=== PATIENT | male | born 1960 | race Caucasian/White ===

== ENCOUNTER 2016-12-04 04:19 | Emergency (ER) | payer OTHER ==
--- NOTE | ~2016-12-04 | CR243 ---
[facility] A Service of [facility] RADIOLOGY TEXT RESULTS PATIENT: PRUDENCIO KNOX LOCATION: [facility] : [birth year] UNIT #: [id number] AGE: [address]: Desean Eden MD SEX: M ORDER DR: [id number] [facility] [address]. [place], [place] [address] [id number] E MR#: [id number] Acc #: [id number] NAME: PRUDENCIO KNOX : 1960 SEX: M STUDY DATE/TIME: 12/04/2016 05:11 UNIT: [facility] ROOM: STUDY DESCRIPTION: CR Thoracic Spine 3 Views Attending Physician: Desean Eden M.D. Ordering Physician: Abdifatah Yepez Aprn Primary Care Physician: Jovana Goel M.D. MEDICAL IMAGING REPORT This report is preliminary unless electronic signature is present EXAM Thoracic spine, 12/04 at 05:11 INDICATIONS Back pain after a fall tonight. Patient in alcohol withdrawal. FINDINGS 3 views of the thoracic spine are compared with PA and lateral chest x-ray from 02/06/2015. Multilevel osteophyte formation is seen. There is no fracture or subluxation. IMPRESSION Degenerative osteophyte formation. No acute fracture or malalignment. Dictated by... Desean Welsh Jr., M.D. THIS IS AN ELECTRONICALLY VERIFIED REPORT Desean Welsh Jr., M.D. at 12/04/2016 9:26 PM REGINE/tony TD: 12/04/2016 09:59 JOB #: [id number] MEDICAL IMAGING REPORT Page 1 of 1 COPY
--- NOTE | ~2016-12-04 | CT71 ---
[facility] A Service of [facility] & [facility] RADIOLOGY TEXT RESULTS PATIENT: PRUDENCIO KNOX LOCATION: [facility] : 64 UNIT #: [id number] AGE: [address]: Desean Eden MD SEX: M ORDER DR: [id number] [facility] [address]. [place], [place] [address] [id number] E MR#: [id number] Acc #: [id number] NAME: PRUDENCIO KNOX : 1960 SEX: M STUDY DATE/TIME: 12/04/2016 05:36 UNIT: [facility] ROOM: STUDY DESCRIPTION: CT Head Wo Contrast Attending Physician: Desean Eden M.D. Ordering Physician: Abdifatah Yepez Aprn Primary Care Physician: Jovana Goel M.D. MEDICAL IMAGING REPORT This report is preliminary unless electronic signature is present EXAM Head CT 12/04 at 05:36 INDICATIONS Alcohol withdrawal. Fall with subsequent headache this morning. This CT exam was performed with one or more of the following radiation dose reduction techniques: automatic exposure control, adjustment of mA and/or kV according to patient size, and iterative reconstruction. FINDINGS Axial images were obtained from base of the vertex without contrast. Comparison is made with 09/30/2016. Again seen is generalized atrophy. Ventricular size and configuration remain normal. No acute infarct or hemorrhage. No masses. No skull fractures. There is chronic mucosal thickening in the paranasal sinuses. IMPRESSION Atrophy. No acute intracranial abnormality. No skull fracture. Dictated by... Desean Welsh Jr., M.D. THIS IS AN ELECTRONICALLY VERIFIED REPORT Desean Welsh Jr., M.D. at 12/04/2016 9:26 PM REGINE/brando TD: 12/04/2016 09:59 JOB #: [id number] MEDICAL IMAGING REPORT Page 1 of 1 COPY
--- NOTE | ~2016-12-04 | CR71 ---
[facility] A Service of [facility] & [facility] RADIOLOGY TEXT RESULTS PATIENT: PRUDENCIO KNOX LOCATION: [facility] : 64 UNIT #: [id number] AGE: [address]: Desean Eden MD SEX: M ORDER DR: [id number] [facility] [address] [place], [place] [address] [id number] E MR#: [id number] Acc #: [id number] NAME: PRUDENCIO KNOX : 1960 SEX: M STUDY DATE/TIME: 12/04/2016 05:15 UNIT: [facility] ROOM: STUDY DESCRIPTION: CR Chest Single View Attending Physician: Desean Eden M.D. Ordering Physician: Abdifatah Yepez Aprn Primary Care Physician: Jovana Goel M.D. MEDICAL IMAGING REPORT This report is preliminary unless electronic signature is present EXAM Chest x-ray 12/04/2016 at 0515 INDICATION Chest pain after fall tonight. Alcohol withdrawal. FINDINGS AP views of the chest compared with 03/28/2016. Cardiac and mediastinal contours are normal. There is emphysema with by bilateral upper lobe scarring, right greater than left. No acute infiltrates. No pneumothorax. IMPRESSION Emphysema with upper lobe scarring. No acute findings in the chest. Dictated by... Desean Welsh Jr., M.D. THIS IS AN ELECTRONICALLY VERIFIED REPORT Desean Welsh Jr., M.D. at 12/04/2016 9:26 PM REGINE/fadi TD: 12/04/2016 10:10 JOB #: [id number] MEDICAL IMAGING REPORT Page 1 of 1 COPY
--- NOTE | ~2016-12-04 | CR58 ---
[facility] A Service of [facility] & [facility] RADIOLOGY TEXT RESULTS PATIENT: PRUDENCIO KNOX LOCATION: [facility] : 64 UNIT #: [id number] AGE: [address]: Desean Eden MD SEX: M ORDER DR: [id number] [facility] [address] [facility]. [place], [place] [address] [id number] MR#: [id number] Acc #: [id number] NAME: PRUDENCIO KNOX : 1960 SEX: M STUDY DATE/TIME: 12/04/2016 0507 UNIT: [facility] ROOM: STUDY DESCRIPTION: CR Cervical Spine 2 or 3 Views Attending Physician: Desean Eden M.D. Ordering Physician: Abdifatah Yepez Aprn Primary Care Physician: Jovana Goel M.D. MEDICAL IMAGING REPORT This report is preliminary unless electronic signature is present EXAM Cervical spine, 12/04 at 0507. INDICATION Neck pain after a fall tonight. Alcohol withdrawal. FINDINGS 3 views of the cervical spine are compared with cervical CT from 09/30/2016. No fractures or subluxation is seen. There is multilevel facet arthropathy. There is degenerative disc disease, predominately at C5-6. Prevertebral soft tissues are normal. IMPRESSION Multilevel degenerative disease. No acute fracture or malalignment. Dictated by... Desean Welsh Jr., M.D. THIS IS AN ELECTRONICALLY VERIFIED REPORT Desean Welsh Jr., M.D. at 12/04/2016 9:26 PM REGINE/coni TD: 12/04/2016 10:04 JOB #: [id number] MEDICAL IMAGING REPORT Page 1 of 1 COPY
[~2016-12-04 04:19] MED LIST: CELEXA PO; KLONOPIN; KLONOPIN PO; LISINOPRIL; LITHIUM; LITHIUM PO; OXYCONTIN; OXYCONTIN PO; THIAMINE HCL100 MG PO
[2016-12-04 04:59] LABS: ALBUMIN SERUM 4.4 g/dL (3.5-5.0); BILIRUBIN, DIRECT 0.2 mg/dL (0.0-0.2); BILIRUBIN,INDIRECT 0.5 mg/dL (0.0-0.9); BILIRUBIN,TOTAL 0.7 mg/dL (0.2-2.0); BUN/CREATININE RATIO 13.75; CALCIUM SERUM 8.3 mg/dL (8.4-10.2); CREATININE SERUM 0.8 mg/dL (0.6-1.4); GLOM FILT RATE Estimated 101.3 mL/min (>60); POTASSIUM 3.5 mmol/L (3.5-5.1); PROTEIN TOTAL SERUM 7.8 g/dL (6.0-8.3)
== END 2016-12-04 11:10 ==
LOC: CED 04:19
PROVIDERS: Nurse Practitioner Family
DX: S80.212A Abrasion, left knee, initial encounter (principal); S80.211A Abrasion, right knee, initial encounter; S30.810A Abrasion of lower back and pelvis, initial encounter; F10.10 Alcohol abuse, uncomplicated; Y90.8 Blood alcohol level of 240 mg/100 ml or more; W22.8XXA Striking against or struck by other objects, initial encounter; F17.210 Nicotine dependence, cigarettes, uncomplicated
CPT/HCPCS: 36415; 70450; 71010; 72040; 72072; 80048; 80076; 96360; 99285; G0480

== ENCOUNTER 2016-12-04 12:48 | Inpatient (IN) | payer OTHER ==
--- NOTE | ~2016-12-04 | PN ---
Unit #: [id number] #: [id number] Patient: PRUDENCIO KNOX [id number] [facility] [address] [place] [address] [id number] MR#: [id number] NAME: PRUDENCIO KNOX ROOM: [facility] Age: 56 Sex: M Admission Date: 12/04/2016 : 1960 Attending Physician: Deniz Shearer M.D. Admitting Physician: Deniz Shearer M.D. Primary Care Physician: Giacomo Angulo NOTES DATE OF SERVICE: 12/06/2016 DISCUSSION Prudencio Knox is a 56-year-old male. The patient was seen on 12/06/2016. The patient interviewed, chart reviewed, and obtained information from nursing staff. The patient was sad, depressed, flat affect, withdrawn, isolative. The patient denied any side effects from medication. Vital signs stable; temperature 98.4, pulse 90, and blood pressure 134/96. The patient is still reporting having withdrawal symptoms such as increase in blood pressure, frequent awakening from sleep, insomnia, mood lability. Complete review of systems unremarkable. MENTAL STATUS EXAMINATION General appearance, the patient dressed casually. Attention span and concentration, fair. Oriented in place and person. Mood and affect, labile. Speech, monotone. Thought process, concrete. The patient denied any thoughts of harming self or others, but guarded. Recent and remote memory, poor. Insight and judgment, poor. DIAGNOSES 1. Alcohol use disorder, severe. 2. Mood disorder, not otherwise specified. ASSESSMENT AND PLAN Advised to continue with current medication and therapeutic protocol. If needed, consider further adjustment of medication. Dictated by... Giacomo Davalos/juvencio TD: 12/06/2016 17:23 JOB #: [id number] Unit #: [id number] #: [id number] Patient: PRUDENCIO KNOX PROGRESS NOTES Page 1 of 1 X Deniz Shearer MD PROGRESS NOTE
--- NOTE | ~2016-12-04 | PN ---
Unit #: [id number] #: [id number] Patient: PRUDENCIO KNOX [id number] [facility] [address] [place] [address] [id number] MR#: [id number] NAME: PRUDENCIO KNOX ROOM: [facility] Age: 56 Sex: M Admission Date: 12/04/2016 : 1960 Attending Physician: Deniz Shearer M.D. Admitting Physician: Deniz Shearer M.D. Primary Care Physician: Giacomo Angulo PROGRESS NOTES DATE 12/07/2016 DISCUSSION Prudencio Knox is a 56-year-old male, seen on 12/07/2016. The patient interviewed, chart reviewed, and obtained information from the nursing staff. The patient was compliant and cooperative. Mood sad and dysphoric, flat affect, and guarded. The patient tolerating medication fairly well, making progress. The patient denied any complaints. REVIEW OF SYSTEMS Complete review of systems unremarkable. MENTAL STATUS EXAMINATION General appearance: Patient dressed casually. Attention span and concentration, fair. Oriented to time, place, and person. Mood and affect, sad and dysphoric. Speech, monotone. Thought process, concrete. The patient denied any thoughts of harming self or other. Recent and remote memory, poor. Insight and judgment, poor. DIAGNOSIS Alcohol use disorder, severe. ASSESSMENT/PLAN Advised to continue with the current detox protocol, if needed consider further adjustment of medication. Dictated by... Giacomo Davalos/miguel TD: 12/10/2016 06:00 JOB #: [id number] Unit #: [id number] #: [id number] Patient: PRUDENCIO KNOX PROGRESS NOTES Page 1 of 1 X Deniz Shearer MD PROGRESS NOTE
--- NOTE | ~2016-12-04 | PN ---
Unit #: [id number] #: [id number] Patient: PRUDENCIO CHIU [id number] [facility] [address] [place] [address] [id number] I MR#: [id number] NAME: PRUDENCIO CHIU ROOM: [facility] Age: 56 Sex: M Admission Date: 12/04/2016 : 1960 Attending Physician: Deniz Shearer M.D. Admitting Physician: Deniz Shearer M.D. Primary Care Physician: Giacomo Angulo PROGRESS NOTES DATE OF SERVICE: 12/09/2016 DISCUSSION Mr. Prudencio Chiu is a 56-year-old male patient, seen on 12/09/2016. The patient interviewed, chart reviewed, and obtained information from nursing staff. The patient reported that he is still having withdrawal symptom, having anxiety, not quite ready to go. The patient's vital signs; temperature 98.6, pulse 63, respirations 16, and blood pressure 100/60. The patient is still complaining of anxiety and mood lability, compliant with medication, compliant and cooperative on the unit. Complete review of systems unremarkable. MENTAL STATUS EXAMINATION General appearance, the patient dressed casually. Attention span and concentration, fair. Oriented in place and person. Mood and affect; sad, dysphoric, anxious. Speech, regular rate. Thought process, goal directed. The patient denied any thoughts of harming self or others or any psychotic symptom. Recent and remote memory, fair. Insight and judgment, fair to slightly impaired. DIAGNOSES 1. Alcohol use disorder, severe. 2. Mood disorder, not otherwise specified. ASSESSMENT AND PLAN Advised to cancel discharge and change it to tomorrow. Continue with current treatment. We will closely monitor. If needed, consider further adjustment of medication. Dictated by... Deniz Shearer M.D. JOCELYNE/juvencio TD: 12/09/2016 16:19 JOB #: [id number] Unit #: [id number] #: [id number] Patient: PRUDENCIO CHIU PROGRESS NOTES Page 1 of 1 X Deniz Shearer MD PROGRESS NOTE
--- NOTE | ~2016-12-04 | PA ---
Unit #: [id number] #: [id number] Patient: PRUDENCIO KNOX [id number] [facility] [address] [place] [address] [id number] I MR#: [id number] NAME: PRUDENCIO KNOX ROOM: [facility] Age: 56 Sex: M Admission Date: 12/04/2016 : 1960 Date of Assessment: 12/05/2016 Attending Physician: Deniz Shearer M.D. Admitting Physician: Deniz Shearer M.D. Primary Care Physician: Jovana Goel M.D. PSYCHIATRIC ASSESSMENT INFORMANTS The patient reliability, fair informant and chart reliability, good. CHIEF COMPLAINT Detox. HISTORY OF PRESENT ILLNESS Mr. Prudencio Knox is a 56-year-old male, needing help with detox. The patient reported having withdrawal symptoms; chills, sweats, tremors, agitation, and nausea. The patient scored 13 on CIWA score. The patient reported using Xanax as reported and has a history of legal problem. The patient reportedly currently disabled, currently homeless, recently detoxed and discharged [facility]. The patient currently denied any psychotic symptom or any suicidal ideation or homicidal ideation. The patient reported tobacco use, age of onset 17; alcohol, age of onset 16; marijuana, age of onset 14; crack cocaine, age of onset 29; opioid, age of onset 46; and benzodiazepine, age of onset 29. The patient reported history of blackout, history of hepatitis, withdrawal symptom, IV drug use, irritability, poor appetite, poor concentration, sleep problem, and tremors. Needing inpatient admission at this time for psychiatric stabilization. PAST PSYCHIATRIC HISTORY Remarkable for history of previous treatment at [facility] in September. FAMILY HISTORY AND SOCIAL HISTORY Poor support system. The patient lives by himself, but currently homeless. No history of any abuse. MEDICAL HISTORY Remarkable for history of hepatitis C and diabetes mellitus. Musculoskeletal; muscle strength and tone, no atrophy or abnormal movement. Gait normal. MEDICATION HISTORY The patient is currently on no medication. ALLERGIES No known drug allergies. SUBSTANCE ABUSE HISTORY Please see above. Unit #: [id number] #: [id number] Patient: PRUDENCIO KNOX REVIEW OF SYSTEMS HEENT: Eyes, clear. Ears, nose, mouth, and throat; clear. CARDIOVASCULAR: Unremarkable. RESPIRATORY: Unremarkable. GI: Unremarkable. : Unremarkable. SKIN: Unremarkable. LYMPH NODE: Unremarkable. NEUROLOGIC: Unremarkable. ENDOCRINE: Unremarkable. HEMATOLOGIC: Unremarkable. ALLERGIC/IMMUNOLOGIC: Unremarkable. MUSCULOSKELETAL: Muscle strength and tone, no atrophy or abnormal movement. Gait normal. MENTAL STATUS EXAMINATION CONSTITUTIONAL: Measurement of vital signs; temperature 98.6, heart rate 70, respiratory rate 18, oxygen saturation 94%, and blood pressure 132/89. Height 5 feet 8 inches and weight 198 pounds. GENERAL APPEARANCE: The patient's hygiene and grooming, poor. No facial deformity noted. MUSCULOSKELETAL: Please see above. PSYCHIATRIC EXAMINATION Description of speech; regular rate, normal volume, normal articulation, coherent, and spontaneous. Description of thought process, goal directed. Description of association, intact. Description of abnormal psychotic thinking; the patient denied any hallucination, delusions, mood lability, sad, depressed, and substance abuse. Denied any suicidal or homicidal ideation or any psychotic symptom. Description of the patient's judgment: Concerning everyday activity, poor. Social situation, poor. Concerning psychiatric condition, poor. Complete mental status examination; oriented in time, place, and person. Recent and remote memory, fair. Attention span and concentration, fair. Language, able to name object and repeat phrases. Fund of knowledge, aware of current event and passive vocabulary intact. Mood and affect, sad and dysphoric. Insight and judgment, fair to poor. ASSETS AND LIABILITIES Assets, the patient is articulate and able to take care of his ADL. Liability, history of depression and substance abuse. ADMITTING DIAGNOSES Psychiatric: Alcohol use disorder, severe, F10.20 and mood disorder, not otherwise specified, F32.9. Secondary diagnosis: Deferred. Medical diagnoses: History of hepatitis C and diabetes. Stressors: Psychosocial stressor. PSYCHIATRIC PLAN AND TREATMENT GOAL AND DISCHARGE PLAN 1. Advised to admit the patient on the inpatient unit. Provide safe, supportive, and structured environment. 2. Ordered labs; CBC, CMP, UA, and UDS. Unit #: [id number] #: [id number] Patient: PRUDENCIO KNOX 3. The patient to start with detox protocol and detox monitoring. If needed, consider further adjustment of medication. The patient to attend all the programing on the inpatient unit. TREATMENT GOAL To attain euthymic mood, gain insight into his problem, and learn coping skills. DISCHARGE PLAN Plan to stabilize the patient and consider followup in outpatient program. ESTIMATED LENGTH OF STAY 5 days. Dictated by... Giacomo Davalos/juvencio TD: 12/05/2016 16:34 JOB #: [id number] PSYCHIATRIC ASSESSMENT Page 1 of 1 X Deniz Shearer MD X PSYCHIATRIC ASSESSMENT
--- NOTE | ~2016-12-04 | DS ---
Unit #: [id number] #: [id number] Patient: PRUDENCIO KNOX [id number] [facility] [address] [place] [address] [id number] MR#: [id number] NAME: PRUDENCIO KNOX ROOM: [facility] Age: 56 Sex: M Admission Date: 12/04/2016 : 1960 Discharge Date: 12/10/2016 Attending Physician: Deniz Shearer M.D. Primary Care Physician: Jovana Goel M.D. DISCHARGE SUMMARY REASON FOR ADMISSION Detox. DIAGNOSTIC STUDIES LABORATORY RESULTS: Unremarkable. HOSPITAL COURSE The patient was admitted to inpatient unit on 12/04/2016 and discharged on 12/10/2016. The patient was treated on the inpatient unit with detox protocol, detox monitoring, chemical dependency group, psychoeducation, and psychotherapy. The patient responded well with the above modalities of treatment. Subsequently, the patient was discharged with a plan to follow up in outpatient program. DISCHARGE MEDICATIONS None. DISCHARGE DIAGNOSES Psychiatric: 1. Alcohol use disorder, severe, F10.20. 2. Mood disorder, not otherwise specified, F32.9. Secondary diagnosis: Deferred. Medical diagnoses: History of hepatitis, diabetes. Stressors: Psychosocial stressors. DISCHARGE INSTRUCTIONS The patient is to follow up in outpatient clinic as per social insurance specialist. CONDITION ON DISCHARGE The patient was pleasant and cooperative. Denied any psychotic symptom or any suicidal ideation. PROGNOSIS Guarded. DIET AND ACTIVITY As tolerated. Dictated by... Deniz Shearer M.D. Unit #: [id number] #: [id number] Patient: PRUDENCIO KNOX SZC/modl TD: 12/10/2016 16:32 JOB #: [id number] DISCHARGE SUMMARY Page 1 of 1 X Deniz Shearer MD X DISCHARGE SUMMARY
--- NOTE | ~2016-12-04 | PN ---
Unit #: [id number] #: [id number] Patient: PRUDENCIO KNOX [id number] [facility] [address] [place] [address] [id number] I MR#: [id number] NAME: PRUDENCIO KNOX ROOM: [facility] Age: 56 Sex: M Admission Date: 12/04/2016 : 1960 Attending Physician: Deniz Shearer M.D. Admitting Physician: Deniz Shearer M.D. Primary Care Physician: Giacomo Angulo PROGRESS NOTES DATE OF SERVICE: 12/05/2016 DISCUSSION Mr. Prudencio Knox is a 56-year-old male, seen on 12/05/2016. The patient continues to be withdrawn, sad, dysphoric, anxious, having tremors, flat affect. Reported having withdrawal symptoms. Vital signs; temperature 98.6, pulse 70, and blood pressure 132/89. Complete review of systems unremarkable. MENTAL STATUS EXAMINATION General appearance, the patient dressed casually. Attention span and concentration, fair. Oriented in place and person. Mood and affect; sad, depressed. Speech, monotone. Thought process, concrete. The patient denied any thoughts of harming self or others, but guarded, isolative, seclusive, having withdrawal symptoms as mentioned above. Recent and remote memory, poor. Insight and judgment, poor. DIAGNOSIS Alcohol use disorder, severe. ASSESSMENT AND PLAN Advised to continue with current medication and therapeutic protocol. If needed, consider further adjustment of medication. Dictated by... Giacomo Davalos/juvencio TD: 12/05/2016 20:21 JOB #: [id number] Unit #: [id number] #: [id number] Patient: PRUDENCIO KNOX PROGRESS NOTES Page 1 of 1 X Deniz Shearer MD PROGRESS NOTE
--- NOTE | ~2016-12-04 | PN ---
Unit #: [id number] #: [id number] Patient: PRUDENCIO KNOX [id number] [facility] [address] [place] [address] [id number] I MR#: [id number] NAME: PRUDENCIO KNOX ROOM: [facility] Age: 56 Sex: M Admission Date: 12/04/2016 : 1960 Attending Physician: Deniz Shearer M.D. Admitting Physician: Deniz Shearer M.D. Primary Care Physician: Giacomo Angulo PROGRESS NOTES DATE 12/08/2016 DISCUSSION Prudencio Knox is a 56-year-old male seen on 12/08/2016. Patient interviewed, chart reviewed, and obtained information from nursing staff. Patient was compliant and cooperative. Mood sad, dysphoric. Flat affect. Guarded. Patient was able to maintain safe behavior. REVIEW OF SYSTEMS Complete review of systems unremarkable. MENTAL STATUS EXAMINATION GENERAL APPEARANCE: Patient dressed casually. ATTENTION SPAN AND CONCENTRATION: Fair. ORIENTATION: Oriented in place and person. MOOD AND AFFECT: Sad, dysphoric. SPEECH: Monotone. THOUGHT PROCESS: [place]. Patient denied any thoughts of harming self or others or any psychotic symptoms. RECENT AND REMOTE MEMORY: Poor. INSIGHT AND JUDGEMENT: Poor. DIAGNOSES Mood disorder, NOS. ASSESSMENT/PLAN Advised to continue with current medication and therapeutic protocol. If needed, consider further adjustment of medication. Dictated by... Giacomo Davalos/anny TD: 12/11/2016 07:56 JOB #: [id number] Unit #: [id number] #: [id number] Patient: PRUDENCIO KNOX PROGRESS NOTES Page 1 of 1 X Deniz Shearer MD X PROGRESS NOTE
--- NOTE | ~2016-12-04 | CO ---
Unit #: [id number] #: [id number] Patient: PRUDENCIO KNOX [id number] [facility] [address] [place] [address] [id number] I MR#: [id number] NAME: PRUDENCIO KNOX ROOM: [facility] Age: 56 Sex: M Admission Date: 12/04/2016 : 1960 Attending Physician: Deniz Shearer M.D. Primary Care Physician: Jovana Goel M.D. Consultation Date: 12/08/2016 CONSULTATION REPORT ORDERING PROVIDER Dr. Shearer. REASON FOR CONSULT Low platelet. SUBJECTIVE The patient has no complaints. He does have a history of alcohol abuse. No hepatitis or HIV that the patient is aware. OBJECTIVE Platelets noted to be 94,000. The remainder of his CBC was unremarkable. His examination was also unremarkable. ASSESSMENT Thrombocytopenia. PLAN Plan is to get a hepatitis panel and HIV; however, I do believe that his low platelet level is due to his alcohol abuse. Records were reviewed from previous admissions and he does have a history of having similar platelet, never below 50,000. Dictated by... Natasha Miller A.P.R.N. for Giacomo Fraser/juvencio TD: 12/08/2016 14:20 JOB #: [id number] CONSULTATION REPORT Page 1 of 1 X NATASHA MILLER APRN CONSULTATION REPORT
--- NOTE | ~2016-12-04 | HP ---
Unit #: [id number] #: [id number] Patient: PRUDENCIO KNOX [id number] [facility] [address] [place] [address] [id number] I MR#: [id number] NAME: PRUDENCIO KNOX ROOM: 74 Age: 56 Sex: M Admission Date: 12/04/2016 : 1960 Attending Physician: Deniz Shearer M.D. Admitting Physician: Deniz Shearer M.D. Primary Care Physician: Jovana Goel M.D. HISTORY AND PHYSICAL HISTORY OF PRESENT ILLNESS Prudencio is a 56 year old admitted to [facility] because of his continued polysubstance abuse which includes alcohol and IV heroin. PAST MEDICAL HISTORY Long history of polysubstance abuse to include IV heroin. PAST SURGICAL HISTORY Fractured right femur with ORIF. ALLERGIES No known drug allergies. SOCIAL HISTORY Smokes one pack per day. Drinks a case of beer on a daily basis and admits to long history of opioid abuse to include IV heroin. FAMILY HISTORY Medically noncontributory. REVIEW OF SYSTEMS CONSTITUTIONAL: No fever or chills. HEENT: Denies any sore throat, ear pain or runny nose. CARDIOVASCULAR: Denies chest pain, irregular heart rhythm or palpitations. CHEST: Denies shortness of breath or cough. No hemoptysis. GASTROINTESTINAL: Denies nausea, vomiting, diarrhea or chronic constipation. ENDOCRINE: Denies history of increased thirst or urination. No recent significant weight loss or gain. GENITOURINARY: Denies dysuria, frequency, or hematuria. SKIN: Denies any rashes. HEMATOLOGIC: Denies history of increased bleeding or bruising. MUSCULOSKELETAL: Denies any hot, swollen joints. No generalized muscle pain. NEUROLOGIC: Denies problems with vision or speech. No frequent, severe headaches. No numbness, tingling or weakness in any extremities. Denies loss of bladder or bowel control. CURRENT MEDICATIONS Detox protocol. PHYSICAL EXAMINATION GENERAL: Alert, well nourished. No apparent distress. Unit #: [id number] #: [id number] Patient: PRUDENCIO KNOX VITAL SIGNS: Blood pressure 132/88, heart rate 80, respirations 16, and temperature 98.6. WEIGHT: 198. HEIGHT: 5 feet 8 inches. SKIN: Warm and dry without rash or lesion. HEENT: Normocephalic. TMs not viewed. Oral and nasal passages clear. Conjunctivae clear. PERRLA. EOMs intact. NECK: Supple without lymphadenopathy or thyromegaly. HEART: Regular rate and rhythm without murmur. LUNGS: Clear. ABDOMEN: Soft, nontender. : Not done. EXTREMITIES: No evidence of cyanosis, clubbing or edema. Moves all without focal deficit. NEUROLOGICAL: Grossly within normal limits. Cranial Nerves: II: Visual solorzano are intact. III, IV AND : Extraocular movements are intact. Pupils are equal, round and reactive to light. V: Facial sensation is grossly normal. VII: Facial movements and expression are normal. VIII: Auditory acuity grossly intact. IX, X: Uvula is midline. Phonation is normal. XI: Patient shrugs shoulders and turns head normally. XII: Tongue protrudes in the midline. Sensory and Motor Function: Sensory and motor sensation is grossly normal. Motor: moves all extremities well. Coordination: Gait is normal. Deep Tendon Reflexes: Intact. IMPRESSION Psychiatric admission. RECOMMENDATIONS PSYCHIATRIC: Per psychiatrist. MEDICAL: I see no contraindication to participate in this facility's activities. MEDICAL PROGNOSIS Good. MEDICAL CONDITION Stable. Dictated by... Toña Powers P.A.-C. for Giacomo Fraser/eron TD: 12/05/2016 10:51 JOB #: [id number] Unit #: [id number] #: [id number] Patient: PRUDENCIO KNOX HISTORY AND PHYSICAL Page 1 of 1 X Toña Powers HISTORY AND PHYSICAL
[2016-12-05 10:19] LABS: THYROID STIMULATING HORMONE 1.96 uIU/ml (0.34-5.60)
[2016-12-05 10:26] LABS: FREE THYROXIN (T4) 0.81 ng/dL (0.58-1.64)
[2016-12-05 10:31] LABS: URINE APPEARANCE CLEAR; URINE BILIRUBIN NEG (NEG); URINE BLOOD NEG (NEG); URINE COLOR DK YELLOW; URINE GLUCOSE NEG (NEG); URINE KETONE NEG (NEG); URINE LEUKOCYTE ESTERASE NEG (NEG); URINE NITRATE NEG (NEG); URINE PH 7.5 (5-8); URINE PROTEIN NEG (NEG)
[2016-12-05 10:46] LABS: AMPHETAMINE NEG (NEG); BARBITURATES NEG (NEG); BENZODIAZEPINES NEG (NEG); COCAINE NEG (NEG); MARIJUANA NEG (NEG); OPIATES NEG (NEG); TRICYCLIC ANTIDEPRESSANTS NEG (NEG); U METHADONE NEG (NEG)
[2016-12-05 10:55] LABS: BASOPHIL% 0.7 % (0-2.5); EOSINOPHIL% 0.2 % (0.0-7.0); HEMATOCRIT 45.8 % (38.0-50.0); HEMOGLOBIN 14.9 gm/dL (13.0-16.0); LYMPHOCYTE# 1.5 X10e3 (1.0-3.5); LYMPHOCYTE% 28.5 % (17.0-45.0); MEAN CELL VOLUME 89.3 FL (83-96); MEAN CORPUSCULAR HEMOGLOBIN 29.1 PG (28-34); MEAN CORPUSCULAR HGB CONC 32.6 g/dL (30-36); MEAN PLATELET VOLUME 7.8 FL (6.5-11.5); MONOCYTE# 0.6 X10e3 (0-1.0); MONOCYTE% 11.6 % (3.0-12.0); NEUTROPHIL# 3.1 X10e3 (1.5-7.1); RED BLOOD COUNT 5.13 X10e (3.90-5.60); RED CELL DISTRIBUTION WIDTH 18.5 % (11.0-15.5); WHITE BLOOD COUNT 5.2 X10e3 (4.0-10.5)
[2016-12-05 11:23] LABS: DIFF IND YES; PLATELET COUNT 94 X10e3 (140-420)
[2016-12-05 11:27] LABS: ANISOCYTOSIS SL; PLATELET ESTIMATE DECREASED (NORMAL); RBC NORMAL YES
[2016-12-13 08:25] LABS: HA AB IGM (HEPPAN) Nonreactive (()); HB CORE AB IGM (HEPPAN) Nonreactive (Nonreactive); HB S AG (HEPPAN) Nonreactive (Nonreactive); HEP C AB (HEPPAN) Reactive (Nonreactive)
== END 2016-12-10 13:15 | disposition home or self-care (01) | DRG 897 ==
LOC: P1E 12:48
PROVIDERS: Psychiatry & Neurology Psychiatry
PROC: HZ2ZZZZ Detoxification Services for Substance Abuse Treatment (ICD-10-PCS; principal; 2016-12-04)
DX: F10.20 Alcohol dependence, uncomplicated (principal); D69.6 Thrombocytopenia, unspecified; F39 Unspecified mood [affective] disorder; B19.20 Unspecified viral hepatitis C without hepatic coma; E11.9 Type 2 diabetes mellitus without complications; Y90.6 Blood alcohol level of 120-199 mg/100 ml
CPT/HCPCS: 80074; 80307; 81003; 84439; 84443; 85025; 86592; 87522; 87806

== ENCOUNTER 2016-12-10 23:59 | Emergency (ER) | payer OTHER ==
[2016-12-11 01:35] LABS: BASOPHIL# 0.1 X10e3 (0-0.3); BASOPHIL% 1.3 % (0-2.5); DIFF IND NO; EOSINOPHIL# 0.1 X10e3 (0-0.7); EOSINOPHIL% 0.9 % (0.0-7.0); HEMATOCRIT 42.6 % (38.0-50.0); LYMPHOCYTE# 2.2 X10e3 (1.0-3.5); LYMPHOCYTE% 30.8 % (17.0-45.0); MEAN CELL VOLUME 89.7 FL (83-96); MEAN CORPUSCULAR HEMOGLOBIN 29.4 PG (28-34); MEAN CORPUSCULAR HGB CONC 32.8 g/dL (30-36); MEAN PLATELET VOLUME 7.9 FL (6.5-11.5); MONOCYTE# 0.9 X10e3 (0-1.0); MONOCYTE% 12.5 % (3.0-12.0); NEUTROPHIL# 3.9 X10e3 (1.5-7.1); NEUTROPHIL% 54.5 % (40-75); PLATELET COUNT 149 X10e3 (140-420); RED BLOOD COUNT 4.75 X10e (3.90-5.60); RED CELL DISTRIBUTION WIDTH 17.6 % (11.0-15.5); WHITE BLOOD COUNT 7.1 X10e3 (4.0-10.5)
[2016-12-11 02:19] LABS: CALCIUM SERUM 9.2 mg/dL (8.4-10.2); CREATININE SERUM 0.8 mg/dL (0.6-1.4); GLOM FILT RATE Estimated 101.3 mL/min (>60)
[2016-12-11 09:14] LABS: AMPHETAMINE NEG (NEG); BARBITURATES NEG (NEG); BENZODIAZEPINES POS (NEG); COCAINE NEG (NEG); MARIJUANA NEG (NEG); OPIATES NEG (NEG); TRICYCLIC ANTIDEPRESSANTS NEG (NEG); U METHADONE NEG (NEG)
== END 2016-12-11 16:31 | disposition short-term general hospital (02) ==
LOC: CED 23:59
PROVIDERS: Emergency Medicine
DX: F10.129 Alcohol abuse with intoxication, unspecified (principal); Y90.6 Blood alcohol level of 120-199 mg/100 ml; F17.200 Nicotine dependence, unspecified, uncomplicated
CPT/HCPCS: 36415; 80048; 80307; 85025; 99285; G0480

== ENCOUNTER 2017-03-14 | Emergency (ER) | payer OTHER ==
--- NOTE | ~2017-03-14 | EKG ---
PATIENT: PRUDENCIO KNOX UNIT #: [id number] Ventricular Rate: 73 BPM Atrial Rate: 267 BPM QRS Duration: 100 ms Q-T Interval: 408 ms QTC Calculation(Bezet): 449 ms Calculated R [place]: 22 degrees Calculated T [place]: 26 degrees Diagnosis Line: Atrial fibrillation Diagnosis Line: Abnormal ECG Diagnosis Line: When compared with ECG of 28-MAR-2016 11:14, Diagnosis Line: Atrial fibrillation has replaced Sinus rhythm Diagnosis Line: Confirmed by CHERIE TRINH MD ([id number]) on Diagnosis Line: 03/14/2017 7:34:18 AM INTERPRETING MD: GAYATHRI FAY
--- NOTE | ~2017-03-14 | CR72 ---
[facility] A Service of [facility] RADIOLOGY TEXT RESULTS PATIENT: PRUDENCIO KNOX LOCATION: [facility] : 64 UNIT #: [id number] AGE: [address]: Lei Linares MD SEX: M ORDER DR: [id number] [place] [id number] [facility]. [place], [place] [address] [id number] E MR#: [id number] Acc #: [id number] NAME: PRUDENCIO KNOX : 1960 SEX: M STUDY DATE/TIME: 03/14/2017 0:39 UNIT: DAR ROOM: STUDY DESCRIPTION: CR Chest Single View Portable Attending Physician: Lei Linares M.D. Ordering Physician: Lei Linares M.D. Primary Care Physician: Jovana Goel M.D. MEDICAL IMAGING REPORT This report is preliminary unless electronic signature is present EXAM Portable chest INDICATION Unresponsive patient today. PROCEDURE Frontal view chest. COMPARISON 12/04/2016. FINDINGS Vwqg-ta-sqfrknuq cardiomegaly. There is diffuse interstitial and alveolar prominence similar to the previous study, probably chronic. No new dense consolidation or visible pneumothorax. IMPRESSION Cardiomegaly and likely chronic interstitial coarsening. No new dense opacity. Given the appearance, it is difficult to exclude a component of superimposed edema. Dictated by... Kamran Carlos M.D. THIS IS AN ELECTRONICALLY VERIFIED REPORT Kamran Carlos M.D. at 03/18/2017 8:31 AM EED/kim TD: 03/14/2017 07:04 JOB #: [id number] [facility] A Service [facility] RADIOLOGY TEXT RESULTS PATIENT: PRUDENCIO KNOX LOCATION: [facility] : 64 UNIT #: [id number] AGE: [address]: Lei Linares MD SEX: M ORDER DR: MEDICAL IMAGING REPORT Page 1 of 1 COPY
--- NOTE | ~2017-03-14 | CT71 ---
[facility] A Service of [facility] RADIOLOGY TEXT RESULTS PATIENT: PRUDENCIO KNOX LOCATION: [facility] : 64 UNIT #: [id number] AGE: [address]: Lei Linares MD SEX: M ORDER DR: [id number] [address] [address] [id number] E MR#: [id number] Acc #: [id number] NAME: PRUDENCIO KNOX : 1960 SEX: M STUDY DATE/TIME: 03/14/2017 0:59 UNIT: DAR ROOM: STUDY DESCRIPTION: CT Head Wo Contrast Attending Physician: Lei Linares M.D. Ordering Physician: Lei Linares M.D. Primary Care Physician: Jovnaa Goel M.D. MEDICAL IMAGING REPORT This report is preliminary unless electronic signature is present EXAM CT head without contrast INDICATION Confusion today. PROCEDURE Unenhanced CT head. This CT examination was performed with one or more of the following radiation dose reduction techniques: automatic exposure control, adjustment of mA and/or kV according to patient size, and iterative reconstruction. COMPARISON 12/04/2016. FINDINGS No acute hemorrhage, abnormal mass effect, extraaxial fluid collection or hydrocephalus. No depressed calvarial fracture. Paranasal sinuses, mastoid air cells are clear. IMPRESSION No acute intracranial findings. Dictated by... Kamran Carlos M.D. THIS IS AN ELECTRONICALLY VERIFIED REPORT Kamran Carlos M.D. at 03/18/2017 8:30 AM EEJonnathan/kim TD: 03/14/2017 07:09 JOB #: [id number] [facility] A Service of [facility] RADIOLOGY TEXT RESULTS PATIENT: PRUDENCIO KNOX LOCATION: [facility] : 64 UNIT #: [id number] AGE: [address]: Lei Linares MD SEX: M ORDER DR: MEDICAL IMAGING REPORT Page 1 of 1 COPY
[2017-03-14 01:32] LABS: POC - CKMB 1.7 ng/mL (0.0-7.9); POC - TROPONIN <0.05 ng/mL (<=0.05)
[2017-03-14 02:21] LABS: BASOPHIL# 0.1 X10e3 (0-0.3); BASOPHIL% 1.3 % (0-2.5); EOSINOPHIL# 0.1 X10e3 (0-0.7); EOSINOPHIL% 1.4 % (0.0-7.0); HEMATOCRIT 41.6 % (38.0-50.0); HEMOGLOBIN 13.7 gm/dL (13.0-16.0); LYMPHOCYTE# 2.2 X10e3 (1.0-3.5); LYMPHOCYTE% 35.1 % (17.0-45.0); MEAN CELL VOLUME 90.6 FL (83-96); MEAN CORPUSCULAR HEMOGLOBIN 29.9 PG (28-34); MEAN CORPUSCULAR HGB CONC 33.1 g/dL (30-36); MEAN PLATELET VOLUME 7.9 FL (6.5-11.5); MONOCYTE# 0.5 X10e3 (0-1.0); MONOCYTE% 7.7 % (3.0-12.0); NEUTROPHIL# 3.4 X10e3 (1.5-7.1); NEUTROPHIL% 54.5 % (40-75); PLATELET COUNT 148 X10e3 (140-420); RED BLOOD COUNT 4.59 X10e (3.90-5.60); RED CELL DISTRIBUTION WIDTH 13.4 % (11.0-15.5); WHITE BLOOD COUNT 6.2 X10e3 (4.0-10.5)
[2017-03-14 02:22] LABS: PARTIAL THROMBOPLASTIN TIME 24.7 SECONDS (23.5-31.3); PROTHROMBIN TIME (PATIENT) 10.7 SECONDS (10.0-11.7)
[2017-03-14 02:23] LABS: ACETAMINOPHEN <10 ug/mL; ALBUMIN SERUM 3.8 g/dL (3.5-5.0); ALKALINE PHOSPHATASE 66 U/L (32-92); ALT (SGPT) 37 U/L (10-40); AST (SGOT) 36 U/L (10-42); BILIRUBIN, DIRECT 0.1 mg/dL (0.0-0.2); BILIRUBIN,INDIRECT 0.8 mg/dL (0.0-0.9); BILIRUBIN,TOTAL 0.9 mg/dL (0.2-2.0); BLOOD UREA NITROGEN 23 mg/dL (9-23); BUN/CREATININE RATIO 25.55; CALCIUM SERUM 7.7 mg/dL (8.4-10.2); CARBON DIOXIDE 25 mmol/L (22-31); CHLORIDE 111 mmol/L (100-111); CREATININE SERUM 0.9 mg/dL (0.6-1.4); GLOM FILT RATE Estimated 96.5 mL/min (>60); GLUCOSE FASTING 160 mg/dL (70-110); POTASSIUM 3.1 mmol/L (3.5-5.1); PROTEIN TOTAL SERUM 6.8 g/dL (6.0-8.3); SALICYLATE <4.0 mg/dL; SODIUM 140 mmol/L (135-145)
[2017-03-14 02:24] LABS: ALCOHOL BLOOD 336 mg/dL ([, 0])
[2017-03-14 03:02] LABS: DIFF IND NO
== END 2017-03-14 05:00 | disposition left against medical advice (07) ==
LOC: CED
PROVIDERS: Emergency Medicine
DX: I48.91 Unspecified atrial fibrillation (principal); F10.129 Alcohol abuse with intoxication, unspecified; F19.10 Other psychoactive substance abuse, uncomplicated; F17.200 Nicotine dependence, unspecified, uncomplicated
CPT/HCPCS: 36415; 70450; 71010; 80048; 80076; 82553; 82947; 84484; 85025; 85610; 85730; 93005; 96365; 96375; 99285; G0480; J3411; J3475

== ENCOUNTER 2017-03-14 18:31 | Emergency (ER) | payer OTHER ==
[~2017-03-14] VITALS: Ht 167.6 cm; Wt 85.7 kg
[2017-03-14 20:14] LABS: BUN/CREATININE RATIO 32.85; CALCIUM SERUM 7.9 mg/dL (8.4-10.2); CREATININE SERUM 0.7 mg/dL (0.6-1.4); POTASSIUM 3.6 mmol/L (3.5-5.1)
== END 2017-03-14 21:35 | disposition home or self-care (01) ==
LOC: CED 18:31
PROVIDERS: Emergency Medicine
DX: F10.129 Alcohol abuse with intoxication, unspecified (principal); E11.9 Type 2 diabetes mellitus without complications; K75.9 Inflammatory liver disease, unspecified
CPT/HCPCS: 36415; 80048; 82947; 99284; G0480

== ENCOUNTER 2017-03-15 12:23 | Emergency (ER) | payer OTHER ==
[~2017-03-15] VITALS: Ht 188 cm; Wt 85.7 kg
[2017-03-15 12:48] LABS: BASOPHIL# 0.1 X10e3 (0-0.3); BASOPHIL% 0.8 % (0-2.5); DIFF IND NO; EOSINOPHIL% 0.3 % (0.0-7.0); HEMATOCRIT 39.2 % (38.0-50.0); HEMOGLOBIN 13.1 gm/dL (13.0-16.0); LYMPHOCYTE# 2.3 X10e3 (1.0-3.5); LYMPHOCYTE% 29.1 % (17.0-45.0); MEAN CELL VOLUME 89.9 FL (83-96); MEAN CORPUSCULAR HEMOGLOBIN 29.9 PG (28-34); MEAN CORPUSCULAR HGB CONC 33.3 g/dL (30-36); MEAN PLATELET VOLUME 7.4 FL (6.5-11.5); MONOCYTE# 0.8 X10e3 (0-1.0); MONOCYTE% 9.8 % (3.0-12.0); NEUTROPHIL# 4.8 X10e3 (1.5-7.1); PLATELET COUNT 138 X10e3 (140-420); RED BLOOD COUNT 4.37 X10e (3.90-5.60); RED CELL DISTRIBUTION WIDTH 13.3 % (11.0-15.5)
[2017-03-15 13:17] LABS: ALBUMIN SERUM 3.9 g/dL (3.5-5.0); BILIRUBIN, DIRECT 0.2 mg/dL (0.0-0.2); BILIRUBIN,INDIRECT 0.6 mg/dL (0.0-0.9); BILIRUBIN,TOTAL 0.8 mg/dL (0.2-2.0); BUN/CREATININE RATIO 21.66; CREATININE SERUM 0.6 mg/dL (0.6-1.4); POTASSIUM 3.3 mmol/L (3.5-5.1)
[2017-03-16] MEDS ORDERED: LITHIUM PO (09:12)
[2017-03-16] MEDS ORDERED: CELEBREX50 MG PO (09:13)
[2017-03-16] MEDS ORDERED: NEURONTIN600 MG PO (09:14)
[2017-03-16] MEDS ORDERED: CITALOPRAM HBR40 MG PO (09:40)
== END 2017-03-15 17:31 | disposition left against medical advice (07) ==
LOC: CED 12:23
PROVIDERS: Student in an Organized Health Care Education/Training Program
DX: F10.129 Alcohol abuse with intoxication, unspecified (principal)
CPT/HCPCS: 36415; 80048; 80076; 85025; 96365; 96366; 99284; G0480; J3411; J3475

== ENCOUNTER 2017-03-15 19:43 | Observation (INO) | payer OTHER ==
[~2017-03-15] VITALS: Ht 167.6 cm; Wt 99.8 kg
--- NOTE | ~2017-03-15 | DS ---
Unit #: [id number] #: [id number] Patient: PRUDENCIO KNOX [id number] [address] [address] [id number] I MR#: [id number] NAME: PRUDENCIO KNOX ROOM: 46 Age: 56 Sex: M Admission Date: 03/16/2017 : 1960 Discharge Date: 03/17/2017 Attending Physician: Tyrone Bowden M.D. Primary Care Physician: Jovana Goel M.D. DISCHARGE SUMMARY PRINCIPAL DIAGNOSIS Aspiration pneumonia. SECONDARY DIAGNOSES 1. Hypokalemia. 2. Alcohol abuse. 3. Bipolar disorder. 4. Polysubstance abuse with marijuana and opiates. HOSPITAL COURSE The patient was admitted to observation status for aspiration pneumonia and started on Zosyn. He had a normal white blood cell count. Maximum temperature was 100.5 and was nonseptic in appearance. He is felt stable to transition to seven additional days of Augmentin and will be discharged on that. On the day of discharge the patient's potassium level is 3.1 and he will be given 7 days of potassium supplementation and advised to follow up with his primary care physician for repeat check of his potassium levels. The patient was seen by Dr. Shearer with psychiatry for the patient's bipolar disorder and to evaluate him for a 24-hour hold that had been initiated in the emergency room for unknown reason. The hold was removed and the patient is stable to discharge. The patient's lithium level was not measurable. It appears he has been noncompliant with that. He was counseled about compliance. He reports that he has only been drinking again for the last two days and so is not expected to have significant issues with alcohol withdrawal. DISCHARGE DISPOSITION Home. DISCHARGE STATUS Stable. DISCHARGE ACTIVITY Ad carmen. DISCHARGE DIET Unrestricted. DISCHARGE FOLLOWUP Follow up with primary care physician in two to eight weeks. DISCHARGE MEDICATIONS Unit #: [id number] #: [id number] Patient: PRUDENCIO KNOX 1. Potassium chloride 20 mEq p.o. b.i.d. for 7 days. 2. Augmentin 875 mg p.o. b.i.d. for 7 days. 3. Gabapentin 600 mg p.o. daily. 4. Celexa 40 mg p.o. daily. 5. [place] 900 mg p.o. b.i.d. Dictated by... Tyrone Bowden M.D. WSB/jeana TD: 03/17/2017 12:05 JOB #: [id number] DISCHARGE SUMMARY Page 1 of 1 X Tyrone Bowden MD X DISCHARGE SUMMARY
--- NOTE | ~2017-03-15 | CR63 ---
[facility] A Service of [facility] RADIOLOGY TEXT RESULTS PATIENT: PRUDENCIO KNOX LOCATION: [facility] 461-01 : [birth year] UNIT #: [id number] AGE: [address]: Tyrone Bowden MD SEX: M ORDER DR: [id number] [facility] [address] [place], [place] [address] [id number] I MR#: [id number] Acc #: [id number] NAME: PRUDENCIO KNOX : 1960 SEX: M STUDY DATE/TIME: 03/16/2017 7:47 UNIT: [facility] ROOM: [facility] STUDY DESCRIPTION: CR Chest 2 View Attending Physician: Marilyn Kent M.D. Ordering Physician: Edmund Ayala M.D. Primary Care Physician: Jovana Goel M.D. MEDICAL IMAGING REPORT This report is preliminary unless electronic signature is present EXAM Chest 2 views HISTORY Chest pain this morning, 56-year-old patient with a 25-year smoking history. COMMENT Two views of the chest reviewed. Three films submitted. Study compared to 03/14/2017. Interval development of a opacity in the left icq-au-ptflq lung perihilar region. It is about 3.5 cm in dimension and indistinct, without calcification. It is new from the and this would favor some infectious or inflammatory disease. Clinical correlation and followup is recommended to ensure resolution and exclude postobstructive process. Again, there is parenchymal scarring likely in the right upper lung. The cardiac silhouette is mildly enlarged. There is no pneumothorax. There is distortion of pulmonary parenchymal architecture in general, consistent with underlying chronic lung disease. The volume status has probably improved since the . No pleural effusion is suspected. IMPRESSION 1. Since the study of the of this month, the patient has developed an ill-defined opacity in the left sup-ci-csqli lung perihilar region. This is therefore most concerning for infectious or inflammatory disease, or possibly aspiration. Clinical correlation and followup is recommended to exclude a postobstructive process. 2. Likely underlying chronic lung disease with particular scarring in the right upper lobe. There is probably some improvement in volume status since prior film. Cardiac silhouette is still enlarged. Dictated by... Irlanda Grimes M.D. [facility] A Service of [facility] RADIOLOGY TEXT RESULTS PATIENT: PRUDENCIO KNOX LOCATION: [place] [address] : [birth year] UNIT #: [id number] AGE: [address]: Tyrone Bowden MD SEX: M ORDER DR: THIS IS AN ELECTRONICALLY VERIFIED REPORT Irlanda Grimes M.D. at 03/17/2017 7:51 AM SUMA/deyvi TD: 03/16/2017 16:31 JOB #: [id number] MEDICAL IMAGING REPORT Page 1 of 1 COPY
--- NOTE | ~2017-03-15 | EKG ---
PATIENT: PRUDENCIO KNOX UNIT #: [id number] Ventricular Rate: 73 BPM Atrial Rate: 73 BPM P-R Interval: 170 ms QRS Duration: 104 ms Q-T Interval: 400 ms QTC Calculation(Bezet): 440 ms P [place]: 71 degrees Calculated R [place]: 38 degrees Calculated T [place]: 54 degrees Diagnosis Line: Normal sinus rhythm Diagnosis Line: Normal ECG Diagnosis Line: No previous ECGs available Diagnosis Line: Confirmed by MARTIN BILLY MD ([id number]) on Diagnosis Line: 03/17/2017 8:18:27 PM INTERPRETING MD: WHITNEY
--- NOTE | ~2017-03-15 | HP ---
Unit #: [id number] #: [id number] Patient: PRUDENCIO KNOX [id number] [place], [place] [address] [id number] I MR#: [id number] NAME: PRUDENCIO KNOX ROOM: [address] Age: 56 Sex: M Admission Date: 03/16/2017 : 1960 Attending Physician: Marilyn Kent M.D. Primary Care Physician: Jovana Goel M.D. HISTORY AND PHYSICAL CHIEF COMPLAINT Alcohol intoxication. HISTORY OF PRESENT ILLNESS The patient is a 56-year-old male with a past medical history of alcohol abuse, bipolar disorder, seizures, hypertension who presented to the emergency department for evaluation of the above. History is obtained from chart review and discussion with ER staff, as well as from the patient. The patient was apparently found down with a bottle of alcohol. The patient states that he has not been feeling well for the past week. He has had productive cough. He reports chest wall pain in association with cough. He denies any fever. No vomiting or diarrhea. He states that he no longer drinks daily. He states that he has been sober for the past three months but did relapse yesterday and drank about a fifth of vodka. During the course of his evaluation in the emergency department, a chest x-ray was done and showed left upper lobe infiltrate. He was given Zosyn in the emergency department. He is being admitted to [facility] for evaluation and further treatment. PAST MEDICAL HISTORY 1. Admission to [facility] 12/30/2010 for alcohol abuse. 2. Bipolar disorder. 3. 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 The patient does not recall when his last seizures was, it was more than a year ago. 4. Hypertension. PAST SURGICAL HISTORY ORIF of the fight femur. SOCIAL HISTORY The patient lives with his girlfriend. He states that he has been sober for three months. His last drink was yesterday and consisted of a fifth of vodka. He has a history of IV drug use but currently denies. FAMILY HISTORY The patient denies any heart disease or diabetes in his parents. ALLERGIES No known allergies. Unit #: [id number] #: [id number] Patient: PRUDENCIO KNOX HOME MEDICATIONS 1. [place] 900 mg twice daily. 2. Neurontin 600 mg daily. 3. Celexa 40 mg daily. REVIEW OF SYSTEMS A complete review of systems is negative except as indicated in the HPI. PHYSICAL EXAMINATION VITAL SIGNS: Temperature is 99.8, pulse 67, respirations 18, blood pressure 109/54, oxygen saturation is 100% on room air. GENERAL: The patient is a male who is sleeping but wakes to voice. HEENT: The head is atraumatic. Mucous membranes are moist. NECK: Supple. Trachea is midline. CARDIOVASCULAR: Regular rate and rhythm. LUNGS: Demonstrate a few scattered rhonchi. Breathing is not labored. ABDOMEN: Soft, nontender with bowel sounds present in all four quadrants. EXTREMITIES: Nontender with no pedal edema. NEUROLOGIC: The patient is awake and alert. He follows commands. PSYCH: Mood and affect are normal. Patient is cooperative. SKIN: Skin of examined areas is warm and dry. DIAGNOSTIC STUDIES CARDIOLOGY STUDIES: EKG shows normal sinus rhythm at a rate of 73 BPM. Chest x-ray shows left upper lobe infiltrate. LABORATORY STUDIES: Troponin is less than 0.05. Magnesium is 1.7. Complete blood count notable for hemoglobin and hematocrit of 12.7 and 38.4 respectively. Platelets are 125. Comprehensive metabolic panel notable for potassium of 3.3, calcium 7.9. Urinalysis notable for essentially normal urine tox screen, positive for marijuana and opiates. Alcohol level is 263. ASSESSMENT The patient is a 56-year-old male with: 1. Aspiration pneumonia. The patient received Zosyn in the emergency department. 2. Alcohol abuse with intoxication. Alcohol level is 263. 3. Chest wall pain. 4. Hypokalemia. 5. Hypocalcemia. 6. Hypertension. 7. History of seizures related to alcohol withdrawal. 8. Bipolar disorder. 9. Tobacco abuse. PLAN 1. Admit for observation to intermediate level. 2. Blood cultures x2. 3. Sputum culture and sensitivity. 4. Zosyn 3.375 g IV q.6 hours. 5. Supplemental oxygen. 6. DuoNeb. 7. Serial cardiac enzymes. 8. Alcohol withdrawal protocol. 9. Neuro checks. 10. manager equipmentsenior project manager engineering consult regarding alcohol abuse. Unit #: [id number] #: [id number] Patient: ABILIO,PRUDENCIO 11. Repeat labs in the morning including magnesium. 12. Check lithium level. 13. Potassium magnesium protocol. 14. SCDs for DVT prophylaxis. 15. Additional workup and consultants based on above. Dictated by Marilyn Kent M.D. GELY/sarita TD: 03/16/2017 14:25 JOB #: [id number] HISTORY AND PHYSICAL Page 1 of 1 X Marilyn Kent MD X HISTORY AND PHYSICAL
--- NOTE | ~2017-03-15 | EKG ---
PATIENT: PRUDENCIO KNOX UNIT #: [id number] Ventricular Rate: 72 BPM Atrial Rate: 72 BPM P-R Interval: 178 ms QRS Duration: 118 ms Q-T Interval: 418 ms QTC Calculation(Bezet): 457 ms P [place]: 83 degrees Calculated R [place]: 69 degrees Calculated T [place]: 62 degrees Diagnosis Line: Normal sinus rhythm with sinus arrhythmia Diagnosis Line: Poor R wave progression questionable lead position Diagnosis Line: or body habitus Diagnosis Line: Borderline ECG Diagnosis Line: When compared with ECG of 14-MAR-2017 01:13, Diagnosis Line: Sinus rhythm has replaced Atrial fibrillation Diagnosis Line: Confirmed by MARTIN BILLY MD ([id number]) on Diagnosis Line: 03/17/2017 8:15:18 PM INTERPRETING MD: WHITNEY
--- NOTE | ~2017-03-15 | CO ---
Unit #: [id number] #: [id number] Patient: PRUDENCIO KNOX [address] [facility]. [place], [place] [address] [id number] I MR#: [id number] NAME: PRUDENCIO KNOX ROOM: 461 Age: 56 Sex: M Admission Date: 03/16/2017 : 1960 Attending Physician: Tyrone Bowden M.D. Primary Care Physician: Jovana Goel M.D. Consultation Date: 03/17/2017 CONSULTATION REPORT REASON FOR CONSULTATION Bipolar disorder, alcohol abuse. HISTORY OF PRESENT ILLNESS Mr. Prudencio Knox is a 56-year-old white male, seen in room 461, bed 1 on 03/17/2017 at [facility]. The patient was admitted in alcohol intoxicated state. The patient reports that he has a history of bipolar disorder and takes lithium and Celexa. The patient currently denied any suicidal or homicidal ideation. Currently has a sitter. The patient was able to contract for safety, diagnosed with aspiration pneumonia. The patient reported that he was sober from the past 3 months, but did relapse yesterday and drank about a fifth of vodka. The patient's urine drug screen was positive for marijuana and opiates. The patient denied any psychotic symptom. PAST PSYCHIATRIC HISTORY Remarkable for history of bipolar disorder, history of alcohol abuse, history of abuse of opiates and marijuana. MEDICAL HISTORY Remarkable for history of hypertension and obesity. MEDICATION HISTORY The patient is on lithium, Neurontin, Celexa. ALLERGIES No known drug allergies. FAMILY HISTORY AND SOCIAL HISTORY The patient reports that he has a good support system from family. No history of abuse. History of substance abuse as mentioned above. MENTAL STATUS EXAMINATION Vital signs; temperature 99.3, heart rate 63, respiratory rate 18, blood pressure 118/64, and oxygen saturation 98%. General appearance; the patient dressed in hospital attire, lying comfortably in bed, made good eye contact. Attention span and concentration, fair. Speech, regular rate and coherent. Oriented in time, place, and person. Mood and affect were sad, dysphoric, anxious. Thought process, coherent and goal directed. Thought content, the patient denied any thoughts of harming self or others. Denied any hallucination. Recent and remote memory, fair. Language, intact. Fund of knowledge, fair. Insight and judgment, fair to slightly impaired. Unit #: [id number] #: [id number] Patient: PRUDENCIO KNOX DIAGNOSES Psychiatric: Alcohol use disorder, severe, F10.20; cannabis abuse disorder, moderate, F12.20; opioid use disorder, moderate, F11.20; bipolar mood disorder, recurrent, moderate, depressed, F31.9. Secondary diagnosis: Deferred. Medical diagnosis: Please refer to H and P. Stressors: Psychosocial stressors. ASSESSMENT/PLAN 1. Supportive psychotherapy and psychoeducation provided to the patient. 2. Educated about benefits and side effects of medication and course and prognosis of illness. 3. Advised to continue with current combination of medication and resume Celexa and lithium. The patient continue with CIWA protocol. If needed, consider further adjustment of medication. Please feel free to call if any questions, telephone #[phone]. At this time, the patient is not suicidal, able to contract for safety; therefore, recommending to discontinue 72-hour hold and one-to-one monitoring at this time. Dictated by... Giacomo Davalos/juvencio TD: 03/18/2017 00:44 JOB #: [id number] CONSULTATION REPORT Page 1 of 1 X Deniz Shearer MD X CONSULTATION REPORT
[2017-03-15 20:35] LABS: POC - CKMB 1.8 ng/mL (0.0-7.9); POC - TROPONIN <0.05 ng/mL (<=0.05)
[2017-03-16 07:06] LABS: POC - CKMB 1.4 ng/mL (0.0-7.9); POC - TROPONIN <0.05 ng/mL (<=0.05)
[2017-03-16] MEDS ORDERED: LITHIUM PO (09:12)
[2017-03-16] MEDS ORDERED: CELEBREX50 MG PO (09:13)
[2017-03-16] MEDS ORDERED: NEURONTIN600 MG PO (09:14)
[2017-03-16 09:19] LABS: POC - CKMB 1.5 ng/mL (0.0-7.9); POC - TROPONIN <0.05 ng/mL (<=0.05)
[2017-03-16] MEDS ORDERED: CITALOPRAM HBR40 MG PO (09:40)
[2017-03-16 09:58] LABS: BASOPHIL% 0.6 % (0-2.5); EOSINOPHIL% 0.1 % (0.0-7.0); HEMATOCRIT 38.4 % (38.0-50.0); HEMOGLOBIN 12.7 gm/dL (13.0-16.0); LYMPHOCYTE# 1.4 X10e3 (1.0-3.5); LYMPHOCYTE% 16.8 % (17.0-45.0); MEAN CELL VOLUME 89.1 FL (83-96); MEAN CORPUSCULAR HEMOGLOBIN 29.5 PG (28-34); MEAN CORPUSCULAR HGB CONC 33.1 g/dL (30-36); MONOCYTE% 12.2 % (3.0-12.0); NEUTROPHIL# 5.7 X10e3 (1.5-7.1); NEUTROPHIL% 70.3 % (40-75); PLATELET COUNT 125 X10e3 (140-420); RED CELL DISTRIBUTION WIDTH 13.2 % (11.0-15.5); WHITE BLOOD COUNT 8.1 X10e3 (4.0-10.5)
[2017-03-16 10:02] LABS: DIFF IND NO
[2017-03-16 10:12] LABS: ALBUMIN SERUM 3.5 g/dL (3.5-5.0); BILIRUBIN,TOTAL 1.4 mg/dL (0.2-2.0); BUN/CREATININE RATIO 27.5; CALCIUM SERUM 7.9 mg/dL (8.4-10.2); CREATININE SERUM 0.4 mg/dL (0.6-1.4); GLOM FILT RATE Estimated 134.7 mL/min (>60); POTASSIUM 3.3 mmol/L (3.5-5.1); PROTEIN TOTAL SERUM 6.4 g/dL (6.0-8.3)
[2017-03-16 10:21] LABS: THYROID STIMULATING HORMONE 0.76 uIU/ml (0.34-5.60)
[2017-03-16 11:47] LABS: URINE SOURCE CLEAN CATCH
[2017-03-16 11:51] LABS: URINE APPEARANCE CLEAR; URINE BILIRUBIN NEG (NEG); URINE BLOOD NEG (NEG); URINE COLOR YELLOW; URINE GLUCOSE NEG (NEG); URINE KETONE TRACE (NEG); URINE LEUKOCYTE ESTERASE NEG (NEG); URINE NITRATE NEG (NEG); URINE PROTEIN NEG (NEG); URINE SPECIFIC GRAVITY 1.024 (1.003-1.035)
[2017-03-16 11:54] LABS: CULTURE INDICATED? NO
[2017-03-16 12:02] LABS: AMPHETAMINE NEG (NEG); BARBITURATES NEG (NEG); BENZODIAZEPINES NEG (NEG); COCAINE NEG (NEG); MARIJUANA POS (NEG); OPIATES POS (NEG); TRICYCLIC ANTIDEPRESSANTS NEG (NEG); U METHADONE NEG (NEG)
[2017-03-16 17:08] LABS: %MB 0.5 % (0.0-4.0); MB 2.4 ng/ml
[2017-03-16 21:41] LABS: %MB 0.6 % (0.0-4.0); MB 2.2 ng/ml
[2017-03-17 03:42] LABS: BASOPHIL# 0.1 X10e3 (0-0.3); BASOPHIL% 0.6 % (0-2.5); EOSINOPHIL% 0.3 % (0.0-7.0); HEMATOCRIT 38.1 % (38.0-50.0); HEMOGLOBIN 12.7 gm/dL (13.0-16.0); LYMPHOCYTE# 1.1 X10e3 (1.0-3.5); LYMPHOCYTE% 13.8 % (17.0-45.0); MEAN CELL VOLUME 88.8 FL (83-96); MEAN CORPUSCULAR HEMOGLOBIN 29.6 PG (28-34); MEAN CORPUSCULAR HGB CONC 33.3 g/dL (30-36); MEAN PLATELET VOLUME 8.6 FL (6.5-11.5); MONOCYTE# 0.6 X10e3 (0-1.0); NEUTROPHIL% 77.3 % (40-75); PLATELET COUNT 111 X10e3 (140-420); RED BLOOD COUNT 4.29 X10e (3.90-5.60); RED CELL DISTRIBUTION WIDTH 13.4 % (11.0-15.5); WHITE BLOOD COUNT 7.8 X10e3 (4.0-10.5)
[2017-03-17 03:45] LABS: DIFF IND NO
[2017-03-17 04:04] LABS: ALBUMIN SERUM 3.2 g/dL (3.5-5.0); BILIRUBIN,TOTAL 1.1 mg/dL (0.2-2.0); BUN/CREATININE RATIO 16.66; CALCIUM SERUM 7.8 mg/dL (8.4-10.2); CREATININE SERUM 0.6 mg/dL (0.6-1.4); MAGNESIUM 1.9 mg/dL (1.6-3.0); POTASSIUM 3.1 mmol/L (3.5-5.1); PROTEIN TOTAL SERUM 6.1 g/dL (6.0-8.3)
[2017-03-17] MEDS ORDERED: AUGMENTIN PO (13:07)
[2017-03-17] MEDS ORDERED: K-DUR20 ME1 PO (13:11)
== END 2017-03-17 14:28 | disposition home or self-care (01) ==
LOC: CED 19:43 → C4C 03-16 08:20 → CEDOF 03-16 08:20 → CED 03-16 09:12 → C4C 03-16 15:40
PROVIDERS: Emergency Medicine; Family Medicine
DX: J69.0 Pneumonitis due to inhalation of food and vomit (principal); F10.229 Alcohol dependence with intoxication, unspecified; F11.20 Opioid dependence, uncomplicated; F12.20 Cannabis dependence, uncomplicated; E87.6 Hypokalemia; F31.32 Bipolar disorder, current episode depressed, moderate; I10 Essential (primary) hypertension; E83.51 Hypocalcemia; Z72.0 Tobacco use
CPT/HCPCS: 36415; 71020; 80053; 80178; 80307; 81003; 82550; 82553; 82947; 83735; 84132; 84439; 84443; 84484; 85025; 87040; 93005; 94640; 94760; 96360; 96361; 96372; 96374; 96375; 96376; 99285; G0378; G0480; J2543; J3411; J3475; J7042

== ENCOUNTER 2017-04-05 16:15 | Inpatient (IN) | payer OTHER ==
[~2017-04-05] VITALS: Ht 175.3 cm; Wt 98.0 kg
--- NOTE | ~2017-04-05 | CR72 ---
[facility] A Service of [facility] RADIOLOGY TEXT RESULTS PATIENT: PRUDENCIO KNOX LOCATION: [facility] 337- : [birth year] UNIT #: [id number] AGE: [address]: Casandra Alvarenga MD SEX: M ORDER DR: [id number] [facility] [address]. [place], [place] [address] [id number] I MR#: [id number] #: [id number] NAME: PRUDENCIO KNOX : 1960 SEX: M STUDY DATE/TIME: 04/06/2017 13:07 UNIT: [address] ROOM: [facility] STUDY DESCRIPTION: CR Chest Single View Portable Attending Physician: Devika Teran M.D. Ordering Physician: David Mclain M.D. Primary Care Physician: Jovana Goel M.D. MEDICAL IMAGING REPORT This report is preliminary unless electronic signature is present EXAM Chest x-ray single view portable HISTORY Short of air, chest congestion, chest pain, alcohol, symptoms for 3 weeks. COMMENT Single frontal portable view of the chest timed 13:07 on 04/06/2017 compared to 03/16/2017. There is again, [id number] cardiac silhouette enlargement and there is ectasia of the thoracic aorta. On current study concern for airspace disease in the upper lobes bilaterally. The infiltrate previously noted left mid upper lung is no longer seen, presumably resolved. Please correlate for clinical concern for aspiration or pneumonia. No congestive failure. Followup to ensure complete resolution of findings recommended. No pleural effusion. No pneumothorax. IMPRESSION 1. Concern for some airspace disease in the upper lungs bilaterally with interval resolution of the infiltrate previously noted in the left lung perihilar region. Please correlate for clinical concern for aspiration or pneumonia and followup to complete clearing is recommended. 2. Redemonstration of cardiomediastinal silhouette enlargement not changed. Dictated by... Irlanda Grimes M.D. THIS IS AN ELECTRONICALLY VERIFIED REPORT [facility] A Service of [facility] RADIOLOGY TEXT RESULTS PATIENT: PRUDENCIO KNOX LOCATION: [facility] 337-01 : [birth year] UNIT #: [id number] AGE: [address]: Casandra Alvarenga MD SEX: M ORDER DR: Irlanda Grimes M.D. at 04/07/2017 4:54 PM SUMA/mag TD: 04/07/2017 05:22 JOB #: [id number] MEDICAL IMAGING REPORT Page 1 of 1 COPY
--- NOTE | ~2017-04-05 | CO ---
Unit #: [id number] #: [id number] Patient: PRUDENCIO KNOX [id number] [facility] [address] [place], [place] [address] [id number] MR#: [id number] NAME: PRUDENCIO KNOX ROOM: 337 Age: 57 Sex: M Admission Date: 04/06/2017 : 1960 Attending Physician: Casandra Alvarenga M.D. Primary Care Physician: Jovana Goel M.D. Consultation Date: 04/07/2017 CONSULTATION REPORT DISCUSSION Prudencio Knox is a 57-year-old male seen in room 337, bed 1, on April 06, 2017, at [facility]. Patient was alert and oriented in time, place, and person. Denied any suicidal or homicidal ideation. Denied any psychotic symptoms. Patient reported having problems with anxiety. Patient's vital signs are 98.5, 54, 18, 117/73, and oxygen saturation 96%. REVIEW OF SYSTEMS Complete review of systems unremarkable. MENTAL STATUS EXAMINATION GENERAL APPEARANCE: Patient was dressed casually. Attention span and concentration fair. Speech regular rate and coherent. Oriented to time, place, and person. Mood and affect sad and dysphoric. Thought process coherent. Thought content: Patient denied any thoughts of harming self or others. Recent and remote memory fair. Language intact. Fund of knowledge fair. Insight and judgment fair to slightly impaired. DIAGNOSES Psychiatric: 1. Alcohol use disorder, severe, F10.20. 2. Delirium, F05, resolved. 3. Mood disorder not otherwise specified, F32.9. ASSESSMENT/PLAN 1. Supportive psychotherapy and psychoeducation provided to patient. 2. Educated about benefits and side effects of medication and course and prognosis of illness. 3. Advised to continue with current medications and therapeutic protocol. If needed, consider further adjustment of medication. 4. We will continue to follow. 1. Dictated by... Deniz Shearer M.D. JOCELYNE/gabriele TD: 04/07/2017 16:02 JOB #: [id number] Unit #: [id number] #: [id number] Patient: PRUDENCIO KNOX CONSULTATION REPORT Page 1 of 1 X Deniz Shearer MD X CONSULTATION REPORT
--- NOTE | ~2017-04-05 | CT71 ---
[facility] A Service of [facility] RADIOLOGY TEXT RESULTS PATIENT: PRUDENCIO KNOX LOCATION: [facility] 337- : 64 UNIT #: [id number] AGE: [address]: GIDEON TERAN MD SEX: M ORDER DR: [id number] [facility] [address] [facility]. [place], [place] [address] [id number] I MR#: [id number] #: [id number] NAME: PRUDENCIO KNOX : 1960 SEX: M STUDY DATE/TIME: 04/05/2017 20:42 UNIT: [address] ROOM: [facility] STUDY DESCRIPTION: CT Head Wo Contrast Attending Physician: Gideon Teran M.D. Ordering Physician: Clay Dallas D.O. Primary Care Physician: Jovana Goel M.D. MEDICAL IMAGING REPORT This report is preliminary unless electronic signature is present EXAM CT brain without contrast HISTORY Slurred speech and unsteady gait today. Intoxicated. FINDINGS This CT exam was performed with one or more of the following radiation dose reduction techniques: Automatic exposure control, adjustment of mA and/or kV according to patient size, and iterative reconstruction. CT brain without contrast is partly limited by patient motion. No intracranial hemorrhage, mass or edema is identified. 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 No midline shift or ventricular dilatation or extraaxial fluid collection. No hemorrhage or mass or edema is identified. Chronic nasal fracture deformity, with right displacement and right anterior angulation of fracture fragments. Left deviation of the anterior nasal septum. Partly visualized retention cyst in the left maxillary sinus. Additional mild mucosal thickening in the sphenoid sinus. IMPRESSION 1. No acute findings are identified. 2. Exam sensitivity partly limited by motion. Dictated by... Michael Lyn M.D. THIS IS AN ELECTRONICALLY VERIFIED REPORT Michael Lyn M.D. at 04/06/2017 10:10 PM DFL/psc [facility] A Service of [facility] RADIOLOGY TEXT RESULTS PATIENT: PRUDENCIO KNOX LOCATION: A 337-01 : 64 UNIT #: [id number] AGE: [address]: GIDEON TERAN MD SEX: M ORDER DR: TD: 04/06/2017 18:59 JOB #: [id number] MEDICAL IMAGING REPORT Page 1 of 1 COPY
--- NOTE | ~2017-04-05 | CO ---
Unit #: [id number] #: [id number] Patient: PRUDENCIO KNOX [id number] [address] [place], [place] [address] [id number] I MR#: [id number] NAME: PRUDENCIO KNOX ROOM: 337 Age: 57 Sex: M Admission Date: 04/06/2017 : 1960 Attending Physician: Devika Teran M.D. Primary Care Physician: Jovana Goel M.D. Consultation Date: 04/06/2017 CONSULTATION REPORT REASON FOR CONSULTATION Aflutter. HISTORY OF PRESENT ILLNESS This is a 57-year-old male with past history of hypertension, EtOH abuse, polysubstance abuse, bipolar disorder, and tobacco abuse. He was recently admitted in February with alcohol intoxication and diagnosed with aspiration pneumonia. He presented to the ER after drinking rubbing alcohol. He was admitted for observation. During the night, he developed aflutter with rapid ventricular rate in the 150s. This a.m. he remains in aflutter with controlled ventricular rate in the 90s. He denies a prior history of hyperlipidemia or diabetes. 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 He does report some midsternal chest pressure with no radiating pain. He denies shortness of air, nausea, or diaphoresis with the pain. He denies prior occurrences of chest pain or chest discomfort. States he does get short of breath sometimes going up 1 to 2 flight of stairs. PAST MEDICAL HISTORY 1. EtOH abuse. 2. Reformed tobaccoism. 3. Polysubstance abuse. 4. Bipolar disorder. 5. Hypertension. 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 He states he drinks 2 sips of vodka per day with additional 4 to 5 beers per day. He quit smoking 3 years ago because cigarettes were too expensive. He denies illicit drug use, but his urine tox screen is positive for opioids and benzodiazepines. He has a history of IV drug abuse. PAST SURGICAL HISTORY He had ORIF of the right femur. FAMILY HISTORY He denies a family history of premature coronary artery disease. ALLERGIES No known drug allergies. HOME MEDICATIONS [place], Neurontin, Celexa, K-Dur, Augmentin. Unit #: [id number] #: [id number] Patient: PRUDENCIO KNOX REVIEW OF SYSTEMS A 10-point review of systems was conducted and otherwise negative except for what was stated in HPI. PHYSICAL EXAMINATION VITAL SIGNS: Temperature 98.7, heart rate 90, respiratory rate 18, blood pressure 104/66. GENERAL: This is a 57-year-old male, resting in bed, in no acute distress. HEENT: Head, atraumatic, normocephalic. Pupils are equal, round, and reactive. Mucous membranes are moist and intact. NECK: Supple. Trachea is midline. No JVD. LUNGS: Coarse rhonchi throughout and diminished in bases. Nonlabored respirations. HEART: S1, S2. Irregularly irregular rhythm. No murmurs, rubs, or gallops. EXTREMITIES: Pulses are palpable. No pedal edema. No cyanosis. NEUROLOGIC: Alert and oriented to person and place. Moves all extremities equally and follows command without difficulty. DIAGNOSTIC STUDIES LABORATORY RESULTS: Sodium 137, potassium 2.9, chloride 106, BUN 18, creatinine 1.2, glucose 149, magnesium 3.2. Hemoglobin 14.5, hematocrit 43.3, white blood cell count 10.8, platelets 219. AST 85, ALT 44, alkaline phosphatase 58. Geymf-ib-akzu troponin less than 0.05. TSH 0.25 and free T4 is 1.11. Urine tox screen is positive for benzodiazepines and opioids. IMAGING STUDIES: Chest x-ray from February shows congestive heart failure. CARDIOVASCULAR STUDIES: Initial EKG showed normal sinus rhythm. EKG from 04/05/2017 showed atrial flutter with a ventricular rate of 92. ASSESSMENT 1. Paroxysmal atrial flutter, now in normal sinus rhythm. 2. EtOH-induced cardiomyopathy. 3. Likely chronic obstructive pulmonary disease. 4. Acute congestive heart failure, likely secondary to left ventricular systolic dysfunction. 5. CHADS-VASc 2 score is 0. We will not anticoagulate at this time. 6. He is fluid overloaded. We will diurese with Lasix 20 mg p.o. daily. Discontinue IV fluids if okay with HIPS. Add Aldactone 25 mg p.o. daily. 7. Add beta-ne 25 mg p.o. b.i.d. 8. We will check orthostatic vital signs. 9. BNP level. 10. Chest x-ray. 11. Add Protonix 40 mg p.o. b.i.d. 12. Once the patient is euvolemic and the beta-ne is on board, we will start an SUMEET inhibitor. Thank you for asking us to see this patient. We appreciate the consult. Dictated by... Mai Rodriguez APRN for Giacomo Mcbride/juvencio Unit #: [id number] #: [id number] Patient: PRUDENCIO KNOX TD: 04/07/2017 06:36 JOB #: [id number] CONSULTATION REPORT Page 1 of 1 X X CONSULTATION REPORT
--- NOTE | ~2017-04-05 | CO ---
Unit #: [id number] #: [id number] Patient: PRUDENCIO KNOX [id number] [address] [address] [id number] I MR#: [id number] NAME: PRUDENCIO KNOX ROOM: 337 Age: 57 Sex: M Admission Date: 04/06/2017 : 1960 Attending Physician: Casandra Alvarenga M.D. Primary Care Physician: Jovana Goel M.D. Consultation Date: 04/06/2017 CONSULTATION REPORT REASON FOR CONSULTATION Alcohol abuse, alcohol withdrawal. HISTORY OF PRESENT ILLNESS Mr. Prudencio Knox is a 57-year-old male, seen in room 337, bed 1 on 04/06/17. The patient admitted for alcohol withdrawal. The patient denied any suicidal or homicidal ideation. Denied any psychotic symptoms. The patient's vital signs - 98.3, 68, 18, 120/72, oxygen saturation 100%. The patient reports making progress. The patient has a history of previous treatment at [facility], last seen on December 10, 2016 for alcohol withdrawal. The patient was admitted on 04/05 with alcohol abuse, alcohol withdrawal. The patient's found a bottle of rubbing alcohol empty. The patient was confused and had fecal incontinence. The patient was observed for isopropyl alcohol intoxication. Confusion improved. The patient denied suicidal ideation, suicide attempt. PAST PSYCHIATRIC HISTORY Remarkable for history of previous treatment for alcohol abuse and mood disorder at [facility] in November of 2016. No history of any suicide attempt. MEDICAL HISTORY History of hypertension. MEDICATIONS The patient is on lithium, Neurontin, Celexa, Augmentin, K-Dur. FAMILY HISTORY/SOCIAL HISTORY Patient has good support system. No history of abuse. History of substance abuse, as mentioned above. REVIEW OF SYSTEMS A complete review of systems is unremarkable except as mentioned above. MENTAL STATUS EXAMINATION Vital signs - Please see above. General appearance - Patient is dressed casually, lying comfortably in bed. Speech - Regular rate, coherent. Oriented to time, place and person. Mood and affect - Sad, dysphoric, anxious. Thought process - Coherent. Thought content - The patient denied any thoughts of harming self or others or any hallucinations. Recent and remote memory - Fair. Language - Intact. Fund of knowledge - Fair. Insight and judgment - Fair to slightly impaired. DIAGNOSIS Unit #: [id number] #: [id number] Patient: PRUDENCIO KNOX 1. PSYCHIATRIC: Alcohol use disorder, severe, F10.20; delirium, F05, resolved; major depressive disorder, recurrent, severe, F33.2. 2. SECONDARY DIAGNOSIS: Deferred 3. MEDICAL DIAGNOSIS: Please refer to H and P. 4. STRESSOR: Psychosocial stressors. ASSESSMENT AND PLAN 1. Supportive psychotherapy and psychoeducation provided to the patient. 2. Educated about benefits and side effects of medication and course and prognosis of illness. 3. Advised to continue with the current treatment. If needed, consider further adjustment of medications. Patient will continue with treatment as having some complication due to isopropyl alcohol intoxication. Please feel free to call with any questions, telephone number . Dictated by... Giacomo Davalos/kasie TD: 04/07/2017 15:43 JOB #: [id number] CONSULTATION REPORT Page 1 of 1 X Deniz Shearer MD X CONSULTATION REPORT
--- NOTE | ~2017-04-05 | DS ---
Unit #: [id number] #: [id number] Patient: PRUDENCIO KNOX [id number] [address] [address] [id number] I MR#: [id number] NAME: PRUDENCIO KNOX ROOM: 337 Age: 57 Sex: M Admission Date: 04/06/2017 : 1960 Discharge Date: Attending Physician: Casandra Alvarenga M.D. Primary Care Physician: Jovana Goel M.D. DISCHARGE SUMMARY DISCHARGE DIAGNOSES 1. Isopropyl alcohol intoxication. 2. Paroxysmal atrial flutter. 3. Acute diastolic heart failure. 4. Alcoholic cardiomyopathy. 5. Alcohol dependence with daily use. 6. Hypokalemia. 7. Acute kidney injury. 8. Anemia. 9. Transaminitis secondary to alcohol abuse. 10. Abnormal chest x-ray with bilateral infiltrates, less likely pneumonia because the patient is asymptomatic. No fever. Leukocytosis is trending down without antibiotics. 11. Hypertension. 12. History of seizures secondary to alcohol withdrawal. CONSULTATIONS Dr. Mclain. PROCEDURES None. DIAGNOSTIC TESTING LAB DATA: Sodium 139, potassium 3.9, creatinine 1, magnesium 1.9. Troponin is negative. Vitamin B12 is 338. Isopropyl alcohol, methanol and ethyl glycol levels are pending. TSH 0.25, free T4 1.11. [place] level is less than 0.1. Urine drug screen positive for benzodiazepine and opiates. IMAGING: Chest x-ray shows bibasilar upper infiltrates, likely aspiration. CT of the head is negative. ALLERGIES None. DISCHARGE MEDICATIONS 1. [place] 900 mg p.o. b.i.d. 2. Lopressor 25 p.o. b.i.d. 3. Augmentin 875 p.o. b.i.d. 4. Spironolactone 25 p.o. daily. 5. Potassium 20 mEq p.o. daily. 6. Folic acid 1 mg daily. 7. Thiamine 100 daily. Unit #: [id number] #: [id number] Patient: PRUDENCIO KNOX 8. Aspirin 81 mg p.o. daily. HOSPITALIZATION COURSE A 57 year old admitted because of alcohol abuse. Found to have isopropyl alcohol intoxication. The patient was admitted with protocol through poison center, monitored closely on telemetry. IV fluids given. Currently the patient is alert, oriented x3. No neurological deficits. Cardiac-joseph stable. Acute diastolic heart failure with alcoholic cardiomyopathy. The patient was seen by cardiology. Patient received Lasix. According to them, continue with spironolactone. Recent aspiration pneumonia with chest x-ray still having infiltrates. Continue Augmentin and complete his home medication dose. History of bipolar. Continue with current medication. The patient is on lithium and Neurontin. Hypertension, well controlled. Continue with spironolactone. Metoprolol has been added by cardiology. Prescription has been given. DISCHARGE PLAN 1. The patient will be discharged home. 2. Follow with family physician in 1 week time. 3. Follow with Dr. Mclain on May 20. NOTE: Discharge time taken is 31 minutes. Dictated by... Giacomo Rodriguez/kasie TD: 04/07/2017 15:02 JOB #: [id number] DISCHARGE SUMMARY Page 1 of 1 X Casandra Alvarenga MD X DISCHARGE SUMMARY
--- NOTE | ~2017-04-05 | HP ---
Unit #: [id number] #: [id number] Patient: PRUDENCIO KNOX [id number] [address] [address] [id number] MR#: [id number] NAME: PRUDENCIO KNOX ROOM: Age: 57 Sex: M Admission Date: 04/05/2017 : 1960 Attending Physician: Clay Dallas D.O. Primary Care Physician: Jovana Goel M.D. HISTORY AND PHYSICAL CHIEF COMPLAINT Alcohol abuse. HISTORY OF PRESENT ILLNESS The patient is a 57-year-old male with history of alcohol abuse, bipolar disorder, seizure, hypertension, brought to the emergency room with alcohol abuse. The patient is a poor historian and the history is obtained by speaking to the ER physician and the RN at the bedside. The patient went to his parent's house and had a bottle of rubbing alcohol. The patient was very confused and had fecal incontinence and then the EMS was called to bring the patient in. The ER spoke to the Poison Control and recommended further observation for 24 hours for isopropyl alcohol intoxication. The patient is confused and is unable to provide any history. The history is obtained by reviewing the records. PAST MEDICAL HISTORY History of alcohol abuse, bipolar disorder, seizure disorder secondary to alcohol withdrawal, hypertension. PAST SURGICAL HISTORY ORIF of the right femur. SOCIAL HISTORY The patient lives with his girlfriend. He drinks a fifth of vodka. History of IV drug abuse in the past. The patient smokes a half a pack per day and a bottle of rubbing alcohol earlier today. FAMILY HISTORY Unable to obtain. ALLERGIES No known drug allergies. REVIEW OF SYMPTOMS Unable to obtain as the patient is not able to provide any history. HOME MEDICATIONS 1. [place]. 2. Neurontin. 3. Celexa. 4. Augmentin. 5. K-Dur. PHYSICAL EXAMINATION Unit #: [id number] #: [id number] Patient: PRUDENCIO KNOX GENERAL APPEARANCE: The patient is lying on a bed, not in acute distress. VITAL SIGNS: Temperature 97.9. Pulse 104. Respiratory rate 22. Blood pressure 129/90. Sating 100% at room air. HEENT: Atraumatic, normocephalic. ENT: Pupils equal, round, reacting to light and accommodation. Dry mucous membrane. NECK: Supple. LUNGS: Decreased air entry at the bases. HEART: Regular rate and rhythm. ABDOMEN: Soft. Positive bowel sounds. Distended. EXTREMITIES: The patient has a laceration of the right upper extremity and the knee. NEUROLOGIC: The patient is awake and confused. DIAGNOSTIC STUDIES LABORATORY: WBC 12.5, hemoglobin 16.2, hematocrit 40.7, platelets 273. Sodium 145, potassium 3.2, chloride 107, bicarb 25, glucose 140, BUN 18, creatinine 1.6, AST 101, ALT 52, alkaline phosphatase 68, albumin 4.3. ASSESSMENT 1. Isopropyl alcohol abuse. 2. Bipolar disorder. 3. Acute kidney injury. PLAN To admit the patient to observation. The patient will be IV fluids and CIWA protocol with Psyche evaluation for the bipolar disorder. Check the urine tox and the lithium level and repeat the labs again in the morning and further recommendations will follow as more lab results are available. Dictated by Giacomo Johnson TD: 04/05/2017 19:17 JOB #: [id number] HISTORY AND PHYSICAL Page 1 of 1 X GIDEON MCINTYRE MD X HISTORY AND PHYSICAL
--- NOTE | ~2017-04-05 | EKG ---
PATIENT: PRUDENCIO KNOX UNIT #: [id number] Ventricular Rate: 94 BPM Atrial Rate: 293 BPM QRS Duration: 102 ms Q-T Interval: 360 ms QTC Calculation(Bezet): 450 ms Calculated R [place]: 14 degrees Calculated T [place]: 43 degrees Diagnosis Line: Diagnosis Line: Atrial flutter with variable A-V block Diagnosis Line: Abnormal ECG Diagnosis Line: No previous ECGs available Diagnosis Line: Confirmed by KARUNA CARLOS MD ([id number]) on 04/07/2017 Diagnosis Line: 6:21:41 PM INTERPRETING MD: BREANNA FAY
[~2017-04-05 16:15] MED LIST changes: +AUGMENTIN PO; +CELEBREX50 MG PO; +CITALOPRAM HBR40 MG PO; +K-DUR20 ME1 PO; +NEURONTIN600 MG PO
[2017-04-05 17:31] LABS: BASOPHIL# 0.1 X10e3 (0-0.3); BASOPHIL% 0.9 % (0-2.5); HEMATOCRIT 48.7 % (38.0-50.0); HEMOGLOBIN 16.2 gm/dL (13.0-16.0); LYMPHOCYTE# 2.3 X10e3 (1.0-3.5); LYMPHOCYTE% 18.6 % (17.0-45.0); MEAN CELL VOLUME 87.9 FL (83-96); MEAN CORPUSCULAR HEMOGLOBIN 29.2 PG (28-34); MEAN CORPUSCULAR HGB CONC 33.3 g/dL (30-36); MEAN PLATELET VOLUME 7.2 FL (6.5-11.5); MONOCYTE# 1.1 X10e3 (0-1.0); MONOCYTE% 8.5 % (3.0-12.0); PLATELET COUNT 273 X10e3 (140-420); RED BLOOD COUNT 5.54 X10e (3.90-5.60); RED CELL DISTRIBUTION WIDTH 13.5 % (11.0-15.5); WHITE BLOOD COUNT 12.5 X10e3 (4.0-10.5)
[2017-04-05 17:33] LABS: DIFF IND NO
[2017-04-05 17:55] LABS: ALBUMIN SERUM 4.3 g/dL (3.5-5.0); ALKALINE PHOSPHATASE 68 U/L (32-92); ALT (SGPT) 52 U/L (10-40); AST (SGOT) 101 U/L (10-42); BILIRUBIN, DIRECT 0.2 mg/dL (0.0-0.2); BILIRUBIN,INDIRECT 0.7 mg/dL (0.0-0.9); BILIRUBIN,TOTAL 0.9 mg/dL (0.2-2.0); BLOOD UREA NITROGEN 18 mg/dL (9-23); BUN/CREATININE RATIO 11.25; CALCIUM SERUM 8.9 mg/dL (8.4-10.2); CARBON DIOXIDE 25 mmol/L (22-31); CHLORIDE 107 mmol/L (100-111); CREATININE SERUM 1.6 mg/dL (0.6-1.4); GLOM FILT RATE Estimated 47.8 mL/min (>60); GLUCOSE FASTING 140 mg/dL (70-110); POTASSIUM 3.2 mmol/L (3.5-5.1); PROTEIN TOTAL SERUM 8.1 g/dL (6.0-8.3); SALICYLATE <4.0 mg/dL; SODIUM 145 mmol/L (135-145)
[2017-04-05 18:00] LABS: ACETAMINOPHEN <10 ug/mL; ALCOHOL BLOOD <5 mg/dL (0)
[2017-04-05 19:22] LABS: AMPHETAMINE NEG (NEG); BARBITURATES NEG (NEG); BENZODIAZEPINES POS (NEG); COCAINE NEG (NEG); MARIJUANA NEG (NEG); OPIATES POS (NEG); TRICYCLIC ANTIDEPRESSANTS NEG (NEG); U METHADONE NEG (NEG)
[2017-04-06 03:59] LABS: HEMATOCRIT 43.3 % (38.0-50.0); HEMOGLOBIN 14.5 gm/dL (13.0-16.0); MEAN CELL VOLUME 87.7 FL (83-96); MEAN CORPUSCULAR HEMOGLOBIN 29.3 PG (28-34); MEAN CORPUSCULAR HGB CONC 33.4 g/dL (30-36); MEAN PLATELET VOLUME 7.2 FL (6.5-11.5); RED BLOOD COUNT 4.94 X10e (3.90-5.60); RED CELL DISTRIBUTION WIDTH 13.7 % (11.0-15.5); WHITE BLOOD COUNT 10.8 X10e3 (4.0-10.5)
[2017-04-06 04:28] LABS: ALBUMIN SERUM 3.6 g/dL (3.5-5.0); BILIRUBIN,TOTAL 0.6 mg/dL (0.2-2.0); CREATININE SERUM 1.2 mg/dL (0.6-1.4); GLOM FILT RATE Estimated 67.7 mL/min (>60); MAGNESIUM 2.2 mg/dL (1.6-3.0); PROTEIN TOTAL SERUM 6.7 g/dL (6.0-8.3)
[2017-04-06 04:30] LABS: POTASSIUM 2.9 mmol/L (3.5-5.1)
[2017-04-06 04:36] LABS: THYROID STIMULATING HORMONE 0.25 uIU/ml (0.34-5.60)
[2017-04-06 04:43] LABS: FREE THYROXIN (T4) 1.11 ng/dL (0.58-1.64)
[2017-04-06 10:55] LABS: %MB 0.3 % (0.0-4.0); MB 7.9 ng/ml
[2017-04-06 16:44] LABS: %MB 0.3 % (0.0-4.0); MB 5.5 ng/ml
[2017-04-07 06:12] LABS: CALCIUM SERUM 8.6 mg/dL (8.4-10.2); GLOM FILT RATE Estimated 84.4 mL/min (>60); MAGNESIUM 1.9 mg/dL (1.6-3.0); POTASSIUM 3.9 mmol/L (3.5-5.1)
[2017-04-07] MEDS ORDERED: METOPROLOL TART25 MG PO (16:03)
[2017-04-07] MEDS ORDERED: ALDACTONE25 MG PO (16:04)
== END 2017-04-07 16:40 | disposition home or self-care (01) | DRG 896 ==
LOC: CED 16:15 → C3A PCU 18:45 → CED 19:15 → C3A PCU 19:15
PROVIDERS: Emergency Medicine; Internal Medicine; Nurse Practitioner Family
PROC: B24BZZZ Ultrasonography of Heart with Aorta (ICD-10-PCS; principal; 2017-04-06)
DX: F10.220 Alcohol dependence with intoxication, uncomplicated (principal); I50.31 Acute diastolic (congestive) heart failure; N17.9 Acute kidney failure, unspecified; F05 Delirium due to known physiological condition; I48.92 Unspecified atrial flutter; I42.6 Alcoholic cardiomyopathy; F33.2 Major depressive disorder, recurrent severe without psychotic features; I11.0 Hypertensive heart disease with heart failure; Z87.891 Personal history of nicotine dependence; E87.6 Hypokalemia; D64.9 Anemia, unspecified; R74.0 Nonspecific elevation of levels of transaminase and lactic acid dehydrogenase [LDH]; R93.8 Abnormal findings on diagnostic imaging of other specified body structures; Z82.49 Family history of ischemic heart disease and other diseases of the circulatory system; Y90.0 Blood alcohol level of less than 20 mg/100 ml
CPT/HCPCS: 36415; 70450; 71010; 80048; 80053; 80061; 80076; 80178; 80307; 82550; 82553; 82607; 82693; 83540; 83550; 83735; 83880; 83930; 84132; 84439; 84443; 84481; 84484; 84600; 85025; 85027; 86592; 93005; 93306; 94760; 96365; 96366; 99285; G0480; J1650; J3411; J3475; J7042